=== PATIENT | male | born 1965 | race Two or more races ===

== ENCOUNTER 2021-06-10 09:00 | Inpatient (IN) | payer OTHER ==
[~2021-06-10] VITALS: Ht 162.6 cm; Wt 99.8 kg
[2021-06-10] MEDS ORDERED: LIPITOR20 MG PO (15:02)
[2021-06-10] MEDS ORDERED: LASIX20 MG PO (15:02)
[2021-06-10] MEDS ORDERED: DIETHYLPROPION75 MG PO (15:02)
[2021-06-10] MEDS ORDERED: ASA81 MG PO (15:03)
[2021-06-10] MEDS ORDERED: LEVOCARNITINE330 MG PO (15:03)
== END 2021-06-19 19:26 | DRG 470 ==
LOC: EDSTATUS 09:00 → ADM 09:00 → SURG 06-17 06:49 → O/R 06-17 06:49 → SURH 06-17 09:00 → SURG 06-17 14:37
PROVIDERS: ADMIT Orthopaedic Surgery; ATTEND Orthopaedic Surgery
PROC: 0SRD0J9 Replacement of Left Knee Joint with Synthetic Substitute, Cemented, Open Approach (ICD-10-PCS; principal; 2021-06-17 14:00)
DX: M17.12 Unilateral primary osteoarthritis, left knee (principal); D62 Acute posthemorrhagic anemia